=== PATIENT | female | born 1950 ===

== ENCOUNTER 2022-12-20 10:25 | Inpatient (IN) | payer OTHER ==
[~2022-12-20] VITALS: Ht 149.9 cm; Wt 78.9 kg
[2022-12-21] MEDS ORDERED: CARDURA XL8 MG PO (07:57)
[2022-12-21] MEDS ORDERED: CARVEDILOL25 M1 PO (07:57)
[2022-12-21] MEDS ORDERED: LOTENSIN40 MG PO (07:57)
[2022-12-21] MEDS ORDERED: SYNTHROID75 MCG PO (07:57)
[2022-12-21] MEDS ORDERED: FENOFIBRATE48 MG PO (07:58)
[2022-12-21] MEDS ORDERED: NIFEDIPINE ER30 MG PO (07:58)
[2022-12-21] MEDS ORDERED: OMEGA-31000 MG PO (07:58)
[2022-12-23] MEDS ORDERED: OMEGA-3 ACID ETH1 GM (16:02)
== END 2022-12-24 10:36 | disposition home or self-care (01) | DRG 741 ==
LOC: OB/GYN 12-23 11:45 → O/R 12-23 15:25 → SURH 12-23 20:17
PROVIDERS: ADMIT Obstetrics & Gynecology Gynecologic Oncology; ATTEND Obstetrics & Gynecology Gynecologic Oncology
PROC: 0UT74ZZ Resection of Bilateral Fallopian Tubes, Percutaneous Endoscopic Approach (ICD-10-PCS; 2022-12-23)
PROC: 0UT24ZZ Resection of Bilateral Ovaries, Percutaneous Endoscopic Approach (ICD-10-PCS; 2022-12-23)
PROC: 07BC4ZZ Excision of Pelvis Lymphatic, Percutaneous Endoscopic Approach (ICD-10-PCS; 2022-12-23)
PROC: 0UT94ZZ Resection of Uterus, Percutaneous Endoscopic Approach (ICD-10-PCS; principal; 2022-12-23 13:30)
DX: C54.1 Malignant neoplasm of endometrium (principal); D25.1 Intramural leiomyoma of uterus; N80.03 Adenomyosis of the uterus; Z20.822 Contact with and (suspected) exposure to COVID-19